=== PATIENT | female | born 1955 | race Caucasian/White ===

== ENCOUNTER → 2024-03-09 06:21 | Day surgery (SDC) | payer MEDICARE, OTHER, SELFPAY | LOC: GI 06:21 | PROVIDERS: ATTENDING PHYSICIAN Internal Medicine Gastroenterology; FAMILY PHYSICIAN Internal Medicine | DX: D12.3 Benign neoplasm of transverse colon (principal); D12.5 Benign neoplasm of sigmoid colon; K57.30 Diverticulosis of large intestine without perforation or abscess without bleeding; D12.8 Benign neoplasm of rectum; K62.1 Rectal polyp; Q43.8 Other specified congenital malformations of intestine; Z86.010 Personal history of colon polyps | CPT/HCPCS: 45385; 45380; 88305 ==